=== PATIENT | female | born 1950 | race Caucasian/White ===

== ENCOUNTER 2019-04-05 07:43 | Outpatient (CLI) | payer OTHER ==
[~2019-04-05 07:43] MED LIST: COZAAR25 MG PO; EVISTA60 MG PO; NEURONTIN600 MG PO; NORFLEX30 MG/ML IJ; PROPANOLOL
== END 2019-04-06 14:20 | disposition home or self-care (01) ==
LOC: TOM 07:43
DX: R10.32 Left lower quadrant pain (principal); K63.5 Polyp of colon

== ENCOUNTER 2023-08-16 10:35 | Emergency (ER) | payer OTHER ==
[~2023-08-16] VITALS: Ht 167.6 cm; Wt 63.0 kg
[~2023-08-16 10:35] MED LIST changes: +NORVASC5 MG PO
[2023-08-16] MEDS ORDERED: TOPROL XL50 M1 (10:39)
== END 2023-08-16 14:30 | disposition home or self-care (01) ==
LOC: ER 10:35
DX: R51.9 Headache, unspecified (principal); I10 Essential (primary) hypertension